=== PATIENT | female | born 1955 | race Caucasian/White ===

== ENCOUNTER 2022-01-25 19:58 | Inpatient (IN) | payer MEDICAID, SELFPAY ==
[2022-01-25] VITALS (8 sets, daily range): BP systolic 123–147; BP diastolic 62–79; PULSE 53–60; RESP 16–18; TEMP 35.8–36.6; O2SAT 95–97; BMI 40.3; BMI 38.8
--- NOTE | 2022-01-25 20:20 | EKG12_ITS ---
Test Reason : SYNCOPE Blood Pressure : / mmHG Vent. Rate : 056 BPM Atrial Rate : 056 BPM P-R Int : 232 ms QRS Dur : 166 ms QT Int : 496 ms P-R-T Axes : 040 -69 076 degrees QTc Int : 478 ms Sinus bradycardia with 1st degree A-V block Left axis deviation Left bundle branch block Abnormal ECG Confirmed by CORTNEY LIN, JEAN-CLAUDE ([id number]), newspaper copy editor TOM SMITH ([id number]) on 01/27/2022 1:03:23 PM Referred By: ELO Confirmed By:JEAN-CLAUDE BARR MD
--- NOTE | 2022-01-25 20:26 | EDS_ITS ---
HPI History of Present Illness Chief Complaint: Syncope Detail of Chief Complaint: Several times at home. Informant: patient Onset/Context/Timing Onset: Today Context: Sudden Onset Timing: Intermittent Current Severity: Gone Maximum Severity: Mild Narrative Narrative: 66-year-old female past medical history of diet-controlled diabetes. States she had a heart catheterization last year which was unremarkable. 2 weeks ago she passed out at home and fell was never evaluated. Today she was sitting at home in a chair and passed out. Awoke 1 to the bathroom passed out several times while using the toilet. Denies any headache, chest pain or shortness of breath. No recent illness other than a mild URI. She is currently on no medications. She denies any history of syncope. Prior similar symptoms: Yes Recent Illness/Hospitalization: No PFSH PFSH Home Medications NK 01/25/22 [History Last Taken Unknown] Allergy/AdvReac Type Severity Reaction Status Date / Time No Known Allergies Allergy Verified 01/25/22 20:07 Social History Smoking Status: Never smoker ROS ROS ED ROS Narrative Recent URI resolved. Review of Systems ROS Unobtainable: Denies due to encephalopathy Constitutional Constitutional ED: Denies chills or fever(s) Eyes Eyes: Denies blurry vision ENT ENT ED: Denies ear pain Cardiovascular Cardiovascular: Denies chest pain, palpitations or racing heartbeat Respiratory/Chest Respiratory/Chest: Denies cough or dyspnea Gastrointestinal Gastrointestinal: Denies abdominal pain, constipation, diarrhea, melena, nausea or vomiting Genitourinary Genitourinary ED: Denies dysuria or hematuria Musculoskeletal Musculoskeletal: Denies arthralgias Integumentary Denies abscess Neurologic Neurologic: Denies headache(s) Psychiatric Psychiatric: Denies anxiety Endocrine Endocrinology: Denies cold intolerance Hematologic/Lymphatic Hematologic/Lymphatic: Reports none Allergic/Immunologic Allergic/Immunologic ED: Denies mouth swelling or tongue swelling EXAM Physical Exam Narrative Exam Narrative: Well appearing 66-year-old female. Vital signs stable afebrile. Pulse ox 95% room air no signs hypoxia. H EENT exam unremarkable atraumatic. Pupils round reactive light. No facial droop. Normal speech. Neck nontender. Trachea midline. Lungs clear to auscultation bilaterally. Heart regular rhythm rate about 58. 3/6 systolic ejection murmur. Chest wall nontender. Abdomen soft nontender. Moving all 4 extremities. Nontender. No deformity. 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 Normal dorsi plantar flexion. Back nontender. Neurologically she is awake alert with no focal motor deficits. Answering questions and following commands. Const Vital Signs: 01/25/22 20:00 01/25/22 19:59 01/25/22 20:29 Temperature 97.7 F L 97.7 F L Temperature Source Temporal Temporal Pulse Rate 58 L 58 L Respiratory Rate 16 16 Respiratory Effort Normal Non-Labored Respiratory Pattern Normal Blood Pressure 137/62 H 137/62 H Blood Pressure Mean 87 87 Pulse Ox 95 95 Oxygen Delivery Method Room Air Room Air Oxygen Flow Rate (L/min) 01/25/22 21:04 Temperature Temperature Source Pulse Rate 53 L Respiratory Rate 16 Respiratory Effort Respiratory Pattern Blood Pressure 125/65 H Blood Pressure Mean 85 Pulse Ox 96 Oxygen Delivery Method Nasal Cannula Oxygen Flow Rate (L/min) 2 Positive well nourished, well developed and obese; Negative for cachectic, contractures or unkempt General Appearance ED: well developed and NAD; Negative for unkempt, cachectic, contractures, cyanotic or diaphoretic Nutritional Appearance: obese; Negative for cachectic HEENT Reports moist mucous membranes; Denies dry mucous membranes Negative for trauma or tenderness Mouth ED: No dry mucous membranes Mouth: No dry mucous membranes Eyes PERRL and EOMs intact bilaterally General Eye ED: Negative for pale conjunctiva or scleral icterus Neck no lymphadenopathy, supple and no JVD General: Negative for tenderness Lymph Lymphatic: Negative for other Chest Wall inspection of chest normal and palpation of chest normal Chest: Negative for other Resp normal respiratory effort and clear to auscultation bilaterally Effort and Inspection: Negative for retractions Auscultation: Negative for rales, rhonchi or wheezes Cardio regular rhythm, S1 normal heart sound and S2 normal heart sound; Negative for regular rate or no murmurs Rate: bradycardia and other Other Details: Cardia rate in the 50s. 3/6 systolic ejection murmur. GI normal to inspection, nondistended, normoactive bowel sounds, non-tender, non- distended and no masses Inspection: Negative for abdominal distention Auscultation: normoactive bowel sounds Palpation: soft; Negative for tender or guarding Back/Spine no CVA tenderness General Back: Negative for CVA tenderness Cervical Spine: Negative for cervical spine tenderness Thoracic Spine / Upper Back: Negative for thoracic spinal tenderness Lumbar Spine / Lower Back: Negative for lumbar spinal tenderness Extremity normal to inspection General Extremety ED: Negative for edema or tenderness General Extremity: Negative for edema Neuro oriented x3 and CN's II-XII intact bilaterally Sensorium / Orientation: alert; Negative for orientation impaired, lethargic or stuporous Motor Exam: strength 5/5 throughout; Negative for general weakness Psych mental status grossly normal Appearance: Negative for unkempt Attitude: No agitated Mood & Affect: Negative for depressed, anxious or tearful Skin no rashes or lesions noted and no wounds Lesions: No lesion noted Rashes: No rashes noted Trauma: Negative for abrasion Wounds: Negative for wounds noted MDM MDM MDM Narrative Medical decision making narrative: 66-year-old female with multiple syncopal episodes at home. She called the squad when they got there her heart rate was in the 30s. Concern is for cardiac syncope secondary to bradycardia. She undergo cardiac work-up. She will need to be admitted for further evaluation. Repeat exam patient is doing well at 9:25 PM. We discussed her test results. I spoke to the hospitalist and she will be admitted to the PCU. Lab Data Attestation: I reviewed the patient's lab results. Lab results narrative: CBC shows a white count 12.6. H&H 14 and 44. Platelets 329. Electrolytes unremarkable gap of 4 normal being creatinine. Glucose 173. Troponin normal at 9. Chest x-ray unremarkable. Labs: Laboratory Results - last 24 hr 01/25/22 01/25/22 20:30 20:30 WBC 12.6 H RBC 4.75 Hgb 14.0 Hct 44.9 MCV 94.5 MCH 29.5 MCHC 31.2 L RDW Std Deviation 44.9 H RDW Coeff of Claudio 13.0 Plt Count 329 MPV 8.5 Immature Gran % (Auto) 1.000 H Neut % (Auto) 84.0 H Lymph % (Auto) 9.2 L [place] % (Auto) 4.5 Eos % (Auto) 0.8 Baso % (Auto) 0.5 Absolute Neuts (auto) 10.6 H Absolute Lymphs (auto) 1.16 Nucleated RBC % 0 Sodium 140 Potassium 4.7 Chloride 103 Carbon Dioxide 33.0 H Anion Gap 4 L BUN 12 Creatinine 0.87 Estim Creat Clear Calc 56.41 Est GFR (MDRD) Af Amer 84 Est GFR (MDRD) Non-Af 70 BUN/Creatinine Ratio 13.8 Glucose 173 H Calcium 9.3 Troponin I High Sens 9 Radiography Chest X-Ray - ED: 1 View, Read by ED Physician, Heart, Lungs, Mediastinum, Bony Structures, No Acute Disease and Chronic Changes Diagnostic Testing: Chest x-ray, portable, single view interpreted by myself shows no acute abnormality. Normal cardiac silhouette. Normal mediastinum. Normal lung hannah. Rhythm Strip Rhythm Strip: Sinus Rhythm Rate: 56 Ectopy: None EKG Initial EKG: Attestation: I personally reviewed and interpreted this EKG as follows: Interpretation: No Acute Injury Pattern and LBBB Comments: Sinus bradycardia rate of 56. No acute signs of NC or ischemia. Left bundle branch block. No old EKG available for comparison. Discharge Plan Triage Chief Complaint: Syncope ED Provider: Yemi Lima Dx/Rx/DC Orders Clinical Impression: Syncope, Bradycardia, Complete left bundle branch block Prescriptions: No Action NK Primary Care Provider: Balwinder Rowe Referrals: Balwinder Rowe DO [Primary Care Provider] - Disposition Disposition: Acute Care Hospital [facility]
[2022-01-25 20:32] LABS: Absolute Lymphocyte Count 1.16 X10^3/uL (0.83-4.51); Absolute Neutrophil Count 10.6 X10^3/uL (2.0-7.7); Basophil# 0.06 X10^3/uL; Basophil% 0.5 % (0-1); Eosinophils% 0.8 % (0-5); Hematocrit 44.9 % (37-47); Lymphocyte # 1.16 X10^3/ul (0.83-4.51); Lymphocyte % 9.2 % (19-41); Mean Corp Hgb Conc 31.2 g/dL (32-36); Mean Corpuscular Hgb 29.5 pg (27.0-32.0); Mean Corpuscular Volume 94.5 fL (81-99); Mean Platelet Vol. 8.5 fl (6.2-12.0); Monocyte# 0.57 X10^3/uL; Monocyte% 4.5 % (0-10); NRBC Flagged by Analyzer 0 % (0-5); Neutrophil # 10.59 X10^3/uL (2.7-7.7); Platelet Count 329 K/mm3 (150-450); RBC Distribution Width SD 44.9 fl (35.1-43.9); Red Blood Count 4.75 M/mm3 (4.2-5.4); White Blood Count 12.6 K/mm3 (4.4-11.0)
--- NOTE | 2022-01-25 20:33 | RAD_ITS ---
INDICATION: chest pain EXAMINATION/TECHNIQUE: X-RAY - XR Chest 1 View COMPARISON: None. FINDINGS: LINES/DEVICES: None. Transcutaneous pacing pads project over the heart and left upper chest. LUNGS: Symmetric normal lung volumes. No airspace opacity or abnormal interstitial pattern. No nodule or mass. No pleural effusion or pneumothorax. MEDIASTINUM AND CARDIOVASCULAR STRUCTURES: Upper limit of normal size heart with mild pulmonary vascular congestion and mild widening of the vascular pedicle; upper mediastinum. BONES AND SOFT TISSUES: No fracture or focal osseous lesion. RAD/Chest 1 View (Portable) IMPRESSION: 1. Upper limit normal size heart and evidence of mild pulmonary vascular congestion. Electronically Signed: Janak Lieberman DO at 22:21 EDT ,
[2022-01-25 20:49] LABS: Anion Gap 4 (5-15); BUN 12 mg/dL (7-18); BUN/Creat Ratio 13.8 RATIO (10-20); Calcium,Total 9.3 mg/dL (8.5-10.1); Chloride 103 mmol/L (98-107); Creatinine, Serum 0.87 mg/dL (0.55-1.02); EST Glomerular Filtration Rate 70 mL/min (>60); Est Glom Filt Rate - Afr Amer 84 mL/min (>60); Estimated Creatinine Clearance 56.41 ml/min; Glucose 173 mg/dL (74-106); Potassium 4.7 mmol/L (3.5-5.1); Sodium Level 140 mmol/L (136-145); Troponin-I HS (w/2H Reflex) 9 pg/mL (3.0-54.0)
--- NOTE | 2022-01-25 21:32 | CDU_ITS ---
Reason For Study: Syncope Rt. Velocities/BP Lt. Velocities/BP Prox CCA 88.3/13.5 cm/sec. Prox CCA 91.9/17 cm/sec. Mid CCA 93.8/19 cm/sec. Mid CCA 93.7/20.6 cm/sec. Dist CCA 97.1/16.8 cm/sec. Dist CCA 110.1/24.3 cm/sec. Prox ICA 62.6/17 cm/sec. Prox ICA 104.7/18.8 cm/sec. Mid ICA 90/26.1 cm/sec. Mid ICA 112.6/33.6 cm/sec. Dist ICA 90/24.3 cm/sec. Dist ICA 110.4/31.4 cm/sec. Rt. ICA/CCA = 0.96. Lt. ICA/CCA = 1.20. Prox ECA 231.5/3.4 cm/sec. Prox ECA 152.1/13.3 cm/sec. Rt. Vert. 95.5/22.5 cm/sec. Lt. Vert. 45.8/13.9 cm/sec. Right Extracranial There is intimal thickening but no significant atherosclerotic plaque noted in the right common carotid artery. There is homogeneous, smooth atherosclerotic plaque noted in the right internal carotid artery. The right internal carotid artery is very tortuous. There is intimal thickening but no significant atherosclerotic plaque noted in the right external carotid artery. Antegrade flow is noted in the right vertebral artery. Left Extracranial There is homogeneous, smooth atherosclerotic plaque noted in the left common carotid artery. There is intimal thickening but no significant atherosclerotic plaque noted in the left internal carotid artery. There is intimal thickening but no significant atherosclerotic plaque noted in the left external carotid artery. Antegrade flow is noted in the left vertebral artery. Procedure Carotid Duplex [id number]. This is a Carotid Duplex examination using B-mode, color flow and specral Doppler. Exam performed portable in patient room. VL/Carotid Duplex Ultrasound Interpretation Summary Mild (<50%) stenosis right extracranial internal carotid. Normal left extracranial internal carotid. Patent and antegrade vertebrals bilaterally. Ordering Physician: Bere Andrew Referring Physician: Jae Performed By: Racquel Edwards RVT
--- NOTE | 2022-01-25 21:37 | HP.PCM.HOS_ITS ---
HPI - General General Date of Admission: 01/25/22 Date of Service: 01/25/22 Chief Complaint: Syncope HPI Narrative CHRISTIN RAMÍREZ, is a 66 F who presented to the emergency department at [facility] on 01/25/2022 after suffering 2 syncopal episodes today. She reported the first 1 occurred while she was sitting in a chair and she was getting up to go fix dinner and woke up half in the chair and half out of the chair. She reports she had no prodrome but did have urinary incontinence. She did not have any biting of her tongue and was able to get up and proceed with cooking her dinner. She then had several episodes while she was utilizing the toilet later this evening. She called the squad herself and when EMS arrived she was found to be bradycardic but awake. She had no loss of bowel or bladder function at that time. She indicates she had an episode previously this week with no loss of bowel or bladder function at that time either. She did not present for work-up after that episode. She does indicate she has had a recent upper respiratory infection which is resolving. She had a cardiac catheterization in August 2020 at a hospital in [facility] but she is unclear what the name of the hospital is. She will try to find out so we can obtain records. She does state however that she was told the cardiac catheterization was unremarkable. She states she was fatigued throughout the day today however prior to this morning she was feeling fairly normal and recovering from her upper respiratory infection without any difficulties. Vital signs on presentation showed a temperature of 97.7, heart rate has been anywhere between 53 and 58, blood pressure is 137/62, respiratory rate is 16 and pulse ox initially was 95% on room air however she did have some desaturations with pulse ox to 88 and was placed on 2 L nasal cannula. CBC shows a mild leukocytosis at 12.6 with a left shift. Chemistry panel is unremarkable other than an elevated serum bicarbonate which I suspect is related to her untreated sleep apnea and possibly obesity hypoventilation syndrome as well as some hyperglycemia with a blood glucose of 173. Her troponin was negative at 9. Chest x-ray is unremarkable. EKG shows first-degree heart block with a left bundle branch block and no ST-T wave changes at this time that are concerning for acute ischemia. Left bundle branch block makes interpretation more complicated however she has no chest pain and her troponin is normal. [facility] Medical History Aortic valve sclerosis Asthma Complete left bundle branch block GERD (gastroesophageal reflux disease) Hyperlipidemia Mitral valve regurgitation Morbid obesity Vitamin D deficiency Home Medications NK 01/25/22 [History Last Taken Unknown] Allergy/AdvReac Type Severity Reaction Status Date / Time No Known Allergies Allergy Verified 01/25/22 20:07 Family History (Updated 01/25/22 @ 22:[address] Bere Andrew DO) Mother Breast cancer Uterine cancer Surgical History (Updated 01/25/22 @ 22:[address] Bere Andrew DO) History of cataract surgery History of section History of dilation and curettage History of eye surgery S/P total abdominal hysterectomy Social History (Updated 01/25/22 @ 22:[address] Bere Andrew DO) household members: none Smoking Status: Never smoker alcohol intake: never substance use type: does not use ROS Constitutional Constitutional: Reports fatigue; Denies anorexia, change in weight, chills, fever(s), malaise, night sweats, weakness or other Eyes Eyes: Denies blurry vision, change in eye color, change in vision, discharge from eye(s), double vision, erythema, eye pain, loss of vision or other ENT HEENT: Reports nasal congestion; Denies abnormal hearing, dysphagia, ear pain, epistaxis, headache(s), hearing loss, nasal discharge, post nasal drip, sinus pressure, sore throat or other Cardiovascular Cardiovascular: Reports syncope; Denies chest pain, claudication, dyspnea on exertion, edema, lightheadedness, orthopnea, palpitations, paroxysmal nocturnal dyspnea, rapid heart rate or other Respiratory/Chest Respiratory/Chest: Reports cough; Denies dyspnea, excessive phlegm production, hemoptysis, productive cough, shortness of breath at rest, shortness of breath with exertion, wheezing or other Gastrointestinal Gastrointestinal: Denies abdominal pain, coffee ground emesis, constipation, diarrhea, dyspepsia, hematemesis, hematochezia, loose stools, melena, nausea, vomiting or other Genitourinary Genitourinary: Denies burning urination, difficulty urinating, dysuria, hematuria, nocturia, urinary frequency, urinary hesitancy, urinary incontinence, urinary urgency or other Musculoskeletal Musculoskeletal: Denies arthralgias, back pain, joint pain, joint stiffness, joint swelling, myalgias, neck pain or other Neurologic Neurologic: Reports syncope; Denies abnormal gait, abnormal speech, confusion, disequilibrium, dizziness, focal weakness, headache(s), numbness, paresthesias, seizure-like activity, seizures, tingling, tremor(s) or other Psychiatric Psychiatric: Denies anxiety, depression, homicidal ideation, suicidal ideation or other Endocrine Endocrinology: Denies change in body appearance, cold intolerance, excessive sweating, heat intolerance, polydipsia, polyuria or other Hematologic/Lymphatic Hematologic/Lymphatic: Denies anemia, easy bleeding, easy bruising, lymphadenopathy or other Allergic/Immunologic Allergic/Immunologic: Denies rhinitis, hives, eczemia, asthma or other Vital Signs Vital Signs Vital Signs: 01/25/22 20:00 01/25/22 19:59 01/25/22 20:29 Temperature 97.7 F L 97.7 F L Temperature Source Temporal Temporal Pulse Rate 58 L 58 L Respiratory Rate 16 16 Respiratory Effort Normal Non-Labored Respiratory Pattern Normal Blood Pressure 137/62 H 137/62 H Blood Pressure Mean 87 87 Pulse Ox 95 95 Oxygen Delivery Method Room Air Room Air Oxygen Flow Rate (L/min) 01/25/22 21:04 Temperature Temperature Source Pulse Rate 53 L Respiratory Rate 16 Respiratory Effort Respiratory Pattern Blood Pressure 125/65 H Blood Pressure Mean 85 Pulse Ox 96 Oxygen Delivery Method Nasal Cannula Oxygen Flow Rate (L/min) 2 Weight Weight: 106.6 kg Body Mass Index (BMI) 40.3 Physical Exam Const alert, oriented x3, no apparent distress, healthy appearing and well nourished Constitutional Narrative: Morbidly obese, upper middle-aged, white female sitting up in bed, appears comfortable and nontoxic, currently on nasal cannula General Appearance: cooperative HEENT normocephalic, head/scalp atraumatic, hearing grossly normal bilaterally and moist oral mucous membranes HEENT Narrative: Dentition is fair, Mallampati is 3, no thrush Eyes PERRL, EOMs intact bilaterally and conjunctivae normal Eyes Narrative: No scleral icterus Neck no lymphadenopathy, supple, no JVD and no carotid bruits Neck Narrative: Trachea midline, no thyroid enlargement Resp normal respiratory effort, no retractions, no use of accessory muscles and clear to auscultation bilaterally Auscultation: Negative for crackles, rales, rhonchi or wheezes Cardio regular rhythm, S1 normal heart sound, S2 normal heart sound, no rub, no gallops and no clicks; Negative for no murmurs Cardio Narrative: Sinus bradycardia, 3 out of 6 systolic murmur GI normal to inspection, nondistended, normoactive bowel sounds, soft to palpation, non-tender and non-distended Extremity no clubbing, cyanosis or edema Extremity Narrative: 2+ pedal pulses Skin no rashes or lesions noted, no wounds, skin turgor normal, no jaundice, no petechiae and no mottling Neuro oriented x3, CN's II-XII intact bilaterally, moves all extremities and no focal motor deficits Neuro Narrative: Mild generalized weakness proximal greater than distal however no focal deficits, reflexes are 2+ bilateral upper and lower extremities at the patellar tendon and brachial radialis, sensation is intact Speech: speech normal Psych affect normal Psych Narrative: Very pleasant and appropriately interactive Results Lab / Micro Data Result Diagrams: 01/25/22 20:30 01/25/22 20:30 Labs: Laboratory Results - last 24 hr 01/25/22 20:30: WBC 12.6 H, RBC 4.75, Hgb 14.0, Hct 44.9, MCV 94.5, MCH 29.5, MCHC 31.2 L, RDW Std Deviation 44.9 H, RDW Coeff of Claudio 13.0, Plt Count 329, MPV 8.5, Immature Gran % (Auto) 1.000 H, Neut % (Auto) 84.0 H, Lymph % (Auto) 9.2 L, [place] % (Auto) 4.5, Eos % (Auto) 0.8, Baso % (Auto) 0.5, Absolute Neuts (auto) 10.6 H, Absolute Lymphs (auto) 1.16, Nucleated RBC % 0 01/25/22 20:30: Sodium 140, Potassium 4.7, Chloride 103, Carbon Dioxide 33.0 H, Anion Gap 4 L, BUN 12, Creatinine 0.87, Estim Creat Clear Calc 56.41, Est GFR (MDRD) Af Amer 84, Est GFR (MDRD) Non-Af 70, BUN/Creatinine Ratio 13.8, Glucose 173 H, Calcium 9.3, Troponin I High Sens 9 Rhythm Strip Rhythm Strip: Sinus Rhythm Rate: 56 Ectopy: None Assessment & Plan Assessment/Plan (1) Syncope: (2) Bradycardia: (3) Leukocytosis: (4) Hypoxia: PLAN: Plan Syncope -Patient with multiple single apical episodes over the last several days -No significant prodrome -When squad arrived this evening heart rate was in the 30s and patient remains bradycardic in the 50s -Not on any rate controlling medication -Check TSH -Check echocardiogram -Cycle cardiac enzymes--> initial enzyme was normal at 9 -Check carotid Dopplers -Check orthostatics -Check D-dimer and if elevated will get CTA of the chest -Had cardiac catheterization in August 2020--> patient is unclear why they did this however she has a left bundle branch block on EKG and I question whether or not this is the reason -Patient reports that she was told there were no obstructive lesions--> currently unable to remember which hospital this was at but notes that it was in [facility] -We will request records and have asked patient to try to figure out which hospital this was performed Bradycardia -Heart rate in the 30s upon squad arrival after syncopal episode -In the 50s in the emergency department -TSH -Patient is not on any rate controlling medication -Monitor on telemetry -Cardiology consultation -Patient may need event monitor versus loop recorder at discharge depending on w ork-up Hypoxia -Etiology unclear -Currently requiring 2 L nasal cannula -Check D-dimer -Patient with recent respiratory infection and is recovering -Chest x-ray is overtly unremarkable but there does appear to be some cardiomegaly -Check viral respiratory panel -Rapid COVID is pending -If above work-up is negative would consider ABG on room air to check AA gradient and if a gradient is normal for age she may have obesity hypoventilation syndrome Leukocytosis -Mild -Suspect reactive as patient did have CBC yesterday and white count was 10 -Repeat in a.m. Aortic sclerosis and mitral valve regurgitation -Documented on previous admission from earlier in 2021 at [facility] in [place] -Echocardiogram is pending -Patient does have cardiac murmur on physical exam DM-2 -Patient had recent hemoglobin A1c on 01/24/2022 that was 7.3 -Patient is on diet control -Continue carb controlled diet -Sliding scale and Accu-Cheks ordered monitor for ongoing need History of GERD -Patient is not on any medication at baseline History of hyperlipidemia -Patient is not on any baseline medication History of vitamin D deficiency -Patient is not on any vitamin D supplementation at this time JASMIN -Patient noncompliant with CPAP -Would utilize oxygen nocturnally even if does not need [id number] Morbid obesity -BMI 40.3 -Complicates treatment, prognosis, outcomes -Recommend weight loss DVT prophylaxis -Lovenox -SCDs CODE STATUS -Full code Charges/Coding Visit Charges Inpatient E&M: 80735 Init Hosp L3
[2022-01-25 22:29] LABS: D-Dimer Quantitative (DVT/PE) 0.52 FEU/ug/m (0.27-0.49)
[2022-01-25 22:30] LABS: Reflex Troponin-HS? (from REC) Y
[2022-01-25 23:03] LABS: Troponin-I HS 10 pg/mL (3.0-54.0)
[2022-01-25 23:10] LABS: Bedside Glucose 164 mg/dL (74-106)
[2022-01-26] VITALS (12 sets, daily range): BP systolic 120–156; BP diastolic 56–76; PULSE 55–82; RESP 14–20; TEMP 36.5–36.8; O2SAT 88–100
--- NOTE | 2022-01-26 01:25 | PCM.HOSP.N ---
Hospitalist Note D-dimer was 0.52 which is just slightly elevated but when age corrected it is unremarkable.
[2022-01-26 04:30] LABS: Absolute Lymphocyte Count 2.82 X10^3/uL (0.83-4.51); Absolute Neutrophil Count 9.4 X10^3/uL (2.0-7.7); Basophil# 0.05 X10^3/uL; Basophil% 0.4 % (0-1); Eosinophil# 0.21 X10^3/uL; Eosinophils% 1.6 % (0-5); Hematocrit 43.3 % (37-47); Hemoglobin 13.4 g/dL (12.0-15.0); Lymphocyte # 2.82 X10^3/ul (0.83-4.51); Lymphocyte % 20.8 % (19-41); Mean Corp Hgb Conc 30.9 g/dL (32-36); Mean Corpuscular Hgb 29.1 pg (27.0-32.0); Mean Corpuscular Volume 93.9 fL (81-99); Mean Platelet Vol. 8.6 fl (6.2-12.0); Monocyte% 7.4 % (0-10); NRBC Flagged by Analyzer 0 % (0-5); Neutrophil # 9.38 X10^3/uL (2.7-7.7); Neutrophil % 69.3 % (47-70); Platelet Count 315 K/mm3 (150-450); RBC Distribution Width CV 13.1 % (11.6-14.6); RBC Distribution Width SD 44.9 fl (35.1-43.9); Red Blood Count 4.61 M/mm3 (4.2-5.4); White Blood Count 13.5 K/mm3 (4.4-11.0)
[2022-01-26 04:54] LABS: Troponin-I HS 9 pg/mL (3.0-54.0)
[2022-01-26 05:13] LABS: ALB/GLOB Ratio 0.8 RATIO (0.9-2.4); AST(SGOT) 20 U/L (15-37); Alanine Aminotransfer ALT/SGPT 29 U/L (13-56); Alkaline Phosphatase 115 U/L (45-117); Anion Gap 3 (5-15); BUN 13 mg/dL (7-18); BUN/Creat Ratio 14.4 RATIO (10-20); Calcium,Total 8.6 mg/dL (8.5-10.1); Chloride 102 mmol/L (98-107); EST Glomerular Filtration Rate 67 mL/min (>60); Est Glom Filt Rate - Afr Amer 81 mL/min (>60); Estimated Creatinine Clearance 54.53 ml/min; Globulin 3.8 g/dL (2.2-4.2); Glucose 146 mg/dL (74-106); Magnesium 2.3 mg/dL (1.6-2.6); Phosphorus 3.9 mg/dL (2.5-4.9); Potassium 4.9 mmol/L (3.5-5.1); Protein, Total 6.8 g/dL (6.4-8.2); Sodium Level 140 mmol/L (136-145); Thyroid Stim Hormone (TSH) 0.63 uIU/mL (0.358-3.74)
--- NOTE | 2022-01-26 05:55 | ECHOCS_ITS ---
Version 2 Reason For Study: Syncope Procedure This was a 2D Doppler, Color Flow transthoracic echocardiogram. The study was technically difficult. Contrast injection was performed. Exam performed portable in patient room. Left Ventricle Normal LV size. Left ventricular systolic function is normal. The estimated ejection fraction is 65 %. Stage 1 diastolic dysfunction. No regional wall motion abnormalities noted. Right Ventricle Normal RV size. Normal systolic function. Atria The left atrium is mildly enlarged. Normal right atrium. Mitral Valve Normal mitral valve. Tricuspid Valve Normal tricuspid valve. Aortic Valve Trisinus/trileaflet aortic valve. Pulmonic Valve Normal pulmonic valve. Great Vessels Normal aortic root. The pulmonary artery is normal size. Normal inferior vena cava. Pericardium/Pleural No pericardial effusion. Medication Diluted definity 2ml given slow IV push to enhance endocardial definition. MMode/2D Measurements & Calculations LVIDd: 5.8 cm IVSd: 1.0 cm Ao root diam: 3.6 cm LVIDs: 3.7 cm LVPWd: 1.1 cm LA dimension: 4.9 cm FS: 36.6 % LAV(MOD-bp): 63.0 ml LA A4 area: 21.9 cm2 RA A4 area: 15.4 cm2 LAV(MOD-bp) Indexed: 30.6 ml/m2 LAV(MOD-sp2): 62.7 ml LAV(MOD-sp4): 57.4 ml Time Measurements MV dec time: 0.31 sec Doppler Measurements & Calculations MV E max refugio: 90.2 cm/sec Lat Peak E' Refugio: 8.2 cm/sec Med Peak E' Refugio: 6.4 cm/sec MV A max refugio: 117.7 cm/sec E/E' lat: 11.1 E/E' med: 14.1 MV E/A: 0.77 MV V2 max: 158.1 cm/sec MV P1/2t max refugio: 142.3 cm/sec Ao V2 max: 202.8 cm/sec MV max P.0 mmHg MV P1/2t: 120.5 msec Ao max P.4 mmHg MV V2 mean: 89.9 cm/sec MV dec slope: 345.9 cm/sec2 MV mean P.8 mmHg MV V2 VTI: 49.7 cm MVA(P1/2t): 1.8 cm2 PA V2 max: 147.9 cm/sec ECHO/Echo Complete W/ Contrast Interpretation Summary Normal LV size. Left ventricular systolic function is normal. The estimated ejection fraction is 65 %. The left atrium is mildly enlarged. Stage 1 diastolic dysfunction. Contrast injection was performed. Ordering Physician: Bere Andrew Referring Physician: Balwinder Rowe Performed By: Devan Funes RCS
[2022-01-26] MEDS: Albuterol 2.5 MG/3 ML VIAL.NEB. INHALATION ×2 (07:14→20:45)
[2022-01-26 07:52] LABS: Hemoglobin A1c 7.1 % (3.8-5.6)
[2022-01-26 08:11] LABS: Bedside Glucose 137 mg/dL (74-106)
[2022-01-26 09:31] LABS: Bedside Glucose 138 mg/dL (74-106)
[2022-01-26] MEDS: Senna/Docusate Sodium 1 Tablet 2 TABLET PO (09:55)
--- NOTE | 2022-01-26 11:07 | TELEMED_ITS ---
[facility] Tele[facility] has confirmed receipt of a request for visit. This document confirms receipt of the order initiating the consult. To find the results of the consultation, please view the patient's reports for the scanned Telemed Consult.
[2022-01-26] MEDS: Insulin Lispro 100 UNIT/ML INSULN.PEN SC ×2 (11:42→16:17)
--- NOTE | 2022-01-26 11:49 | PN.HOSP_ITS ---
Subjective Subjective Patient seen and examined. She had no complaints this morning. She was admitted with syncope. She denies any headache, dizziness or blurred vision and review of systems otherwise negative. Objective Data Objective Data Vital Signs: Vital Signs Temp Pulse Resp BP Pulse Ox O2 Del Method O2 Flow Rate 97.9 F 61 14 122/56 H 96 Nasal Cannula 2 01/26/22 09:55 01/26/22 09:55 01/26/22 09:55 01/26/22 09:55 01/26/22 09:55 01/26/22 10:59 01/26/22 10:59 Oxygen Flow Rate (L/min) 2 Oxygen Delivery Method Nasal Cannula Weight: 226 lb 3.108 oz Body Mass Index (BMI) 38.8 Intake & Output: Intake and Output for Last 24 Hours 01/24/22 01/25/22 01/26/22 23:59 23:59 22:59 Intake Total 700 / 700 Balance 700 / 700 Lab / Micro Data Result Diagrams: 01/26/22 04:10 01/26/22 04:10 Labs: Laboratory Results - last 24 hr 01/25/22 20:30: WBC 12.6 H, RBC 4.75, Hgb 14.0, Hct 44.9, MCV 94.5, MCH 29.5, MCHC 31.2 L, RDW Std Deviation 44.9 H, RDW Coeff of Claudio 13.0, Plt Count 329, MPV 8.5, Immature Gran % (Auto) 1.000 H, Neut % (Auto) 84.0 H, Lymph % (Auto) 9.2 L, Shannon % (Auto) 4.5, Eos % (Auto) 0.8, Baso % (Auto) 0.5, Absolute Neuts (auto) 10.6 H, Absolute Lymphs (auto) 1.16, Nucleated RBC % 0 01/25/22 20:30: Sodium 140, Potassium 4.7, Chloride 103, Carbon Dioxide 33.0 H, Anion Gap 4 L, BUN 12, Creatinine 0.87, Estim Creat Clear Calc 56.41, Est GFR (MDRD) Af Amer 84, Est GFR (MDRD) Non-Af 70, BUN/Creatinine Ratio 13.8, Glucose 173 H, Calcium 9.3, Troponin I High Sens 9 01/25/22 20:30: D-Dimer Quant (PE/DVT) 0.52 H* 01/25/22 22:36: Troponin I High Sens 10 01/25/22 22:38: POC Glucose 164 H 01/26/22 04:10: Hemoglobin A1c 7.1 H 01/26/22 04:10: WBC 13.5 H, RBC 4.61, Hgb 13.4, Hct 43.3, MCV 93.9, MCH 29.1, MCHC 30.9 L, RDW Std Deviation 44.9 H, RDW Coeff of Claudio 13.1, Plt Count 315, MPV 8.6, Immature Gran % (Auto) 0.500, Neut % (Auto) 69.3, Lymph % (Auto) 20.8, Shannon % (Auto) 7.4, Eos % (Auto) 1.6, Baso % (Auto) 0.4, Absolute Neuts (auto) 9.4 H, Absolute Lymphs (auto) 2.82, Nucleated RBC % 0 01/26/22 04:10: Sodium 140, Potassium 4.9, Chloride 102, Carbon Dioxide 35.0 H, Anion Gap 3 L, BUN 13, Creatinine 0.90, Estim Creat Clear Calc 54.53, Est GFR (MDRD) Af Amer 81, Est GFR (MDRD) Non-Af 67, BUN/Creatinine Ratio 14.4, Glucose 146 H, Calcium 8.6, Phosphorus 3.9, Magnesium 2.3, Total Bilirubin 0.30, AST 20, ALT 29, Alkaline Phosphatase 115, Total Protein 6.8, Albumin 3.0 L, Globulin 3.8, Albumin/Globulin Ratio 0.8 L, TSH 0.63 01/26/22 04:10: Troponin I High Sens 9 01/26/22 06:21: POC Glucose 137 H 01/26/22 08:26: POC Glucose 138 H Micro: Microbiology 01/25/22 21:40 Nasal Secretion SARS-CoV-2 Antigen (Rapid) - Final Radiography Diagnostic Testing: Radiology Impression Chest X-Ray 01/25/22 20:33 IMPRESSION: 1. Upper limit normal size heart and evidence of mild pulmonary vascular congestion. Electronically Signed: Janak Lieberman DO at 22:21 EDT , Rhythm Strip Rhythm Strip: Sinus Rhythm Rate: 56 Ectopy: None Physical Exam Const alert, oriented x3 and average body habitus HEENT head/scalp atraumatic and moist oral mucous membranes Head and Scalp: normocephalic Mouth: oral and palatal mucosa normal Eyes PERRL, EOMs intact bilaterally and conjunctivae normal Resp normal respiratory effort, no retractions, no use of accessory muscles and clear to auscultation bilaterally Cardio regular rate, regular rhythm, S1 normal heart sound, S2 normal heart sound and no murmurs GI normal to inspection, nondistended, normoactive bowel sounds, soft to palpation, non-tender and non-distended Extremity normal to inspection, full ROM and no clubbing, cyanosis or edema Neuro oriented x3, CN's II-XII intact bilaterally, moves all extremities and no focal motor deficits Sensorium / Orientation: awake and alert Motor Exam: strength 5/5 throughout Psych affect normal Assessment & Plan Assessment/Plan (1) Syncope: (2) Bradycardia: PLAN: Plan #Syncope * Says she had 2 episodes of syncope. The first episode was when she had been s itting in her chair for a long time and was getting up to going to peroneal. She felt weak and lightheaded and sat back in her chair and subsequently came around. She does not know how long she was out for. The second episode was when she went to the bathroom and was sitting on the toilet and again passed out. She does not know how long she was out for. * She says she had associated urinary incontinence. She was also bradycardic with heart rate in the 50s when the EMS came. D-dimer corrected for age was within normal limits. * Has symptoms are concerning for possible seizure especially in light of the urinary incontinence. Patient has also as she is concerned she may have had seizures. * She also does say that she falls asleep very easily and has fallen asleep behind the wheel before. It is unclear whether these were seizure episodes or respiratory narcolepsy. * Orthostatics negative. TSH within normal limits. * Troponins were negative. * Will get EEG and consult neurology. * 2D echo also ordered. * PT OT consult. Fall precautions. Cardiology also consulted on account of bradycardia. * #Bradycardia * Heart rate was reportedly in the 30s when the squad arrived. Her heart rate had been in the 50s in the ED and has been pretty much normal since she came in. * Not on any rate limiting medications. Cardiology consulted. Await recs. * 2D echo also ordered. * #History of aortic sclerosis and mitral valve regurgitation * 2D echo ordered and pending * #Type 2 diabetes mellitus: * Last A1c on 01/26/2022 was 7.1 * Currently not on any medication. On diabetic diet. Insulin sliding scale. Accu-Cheks ACH S. * * #JASMIN: * Noncompliant with CPAP. I do suspect that her reported episodes of narcolepsy are likely due to her noncompliance with CPAP * Will need follow-up with pulmonology on outpatient basis * * #Morbid obesity * BMI is 38.8. counseled on DASH diet and physical exercise. * DVT prophylaxis: lovenox Charges/Coding Visit Charges Inpatient E&M: 08982 Subs Hosp L2
[2022-01-26 12:16] LABS: Bedside Glucose 157 mg/dL (74-106)
[2022-01-26 17:20] LABS: Bedside Glucose 193 mg/dL (74-106)
--- NOTE | 2022-01-26 22:17 | CT_ITS ---
STUDY: CT BRAIN WITHOUT CONTRAST REASON FOR EXAM: Female, 66 years old. syncope RADIATION DOSAGE (If Supplied By Facility): CTDIvol = ( 44.99 ) mGy, DLP = ( 779.24 ) mGycm TECHNIQUE: Transaxial CT imaging of the brain was performed without administration of intravenous contrast material. Individualized dose optimization techniques were used for this CT. COMPARISON: No relevant priors. FINDINGS: Normal soft tissue structures. Normal calvarium. Normal size ventricles and extra-axial spaces for the patient''s age. Normal white matter tracts of the cerebral hemispheres. Normal basal ganglia and thalami. Normal brainstem. Normal cerebellum. There is no intracranial hemorrhage. There are no findings of an acute ischemic infarction. Normal visualized paranasal sinuses. CT/Brain/Head without Contrast IMPRESSION: Normal unenhanced CT scan of the brain. Electronically Signed: Atif Castro MD at 22:56 EST ,
[2022-01-26 23:51] LABS: Bedside Glucose 198 mg/dL (74-106)
[2022-01-27] VITALS (8 sets, daily range): BP systolic 118–140; BP diastolic 58–75; PULSE 61–76; RESP 12–18; TEMP 36.6; O2SAT 93–95
[2022-01-27 07:00] LABS: Absolute Lymphocyte Count 2.74 X10^3/uL (0.83-4.51); Basophil# 0.05 X10^3/uL; Basophil% 0.5 % (0-1); Eosinophil# 0.42 X10^3/uL; Eosinophils% 3.8 % (0-5); Hematocrit 42.8 % (37-47); Hemoglobin 13.2 g/dL (12.0-15.0); Lymphocyte # 2.74 X10^3/ul (0.83-4.51); Lymphocyte % 24.8 % (19-41); Mean Corp Hgb Conc 30.8 g/dL (32-36); Mean Corpuscular Hgb 29.5 pg (27.0-32.0); Mean Corpuscular Volume 95.5 fL (81-99); Mean Platelet Vol. 8.8 fl (6.2-12.0); Monocyte# 0.77 X10^3/uL; NRBC Flagged by Analyzer 0 % (0-5); Neutrophil % 63.3 % (47-70); Platelet Count 315 K/mm3 (150-450); RBC Distribution Width SD 45.8 fl (35.1-43.9); Red Blood Count 4.48 M/mm3 (4.2-5.4); White Blood Count 11.1 K/mm3 (4.4-11.0)
[2022-01-27] MEDS: Albuterol 2.5 MG/3 ML VIAL.NEB. INHALATION ×2 (07:02→13:31)
[2022-01-27 07:10] LABS: Bedside Glucose 144 mg/dL (74-106)
--- NOTE | 2022-01-27 07:27 | NURSING ---
Documentation reviewed with Samara HAWLEY preceptee
[2022-01-27 07:34] LABS: Anion Gap 3 (5-15); BUN 13 mg/dL (7-18); BUN/Creat Ratio 16.5 RATIO (10-20); Calcium,Total 8.5 mg/dL (8.5-10.1); Chloride 103 mmol/L (98-107); Creatinine, Serum 0.79 mg/dL (0.55-1.02); EST Glomerular Filtration Rate 78 mL/min (>60); Est Glom Filt Rate - Afr Amer 94 mL/min (>60); Estimated Creatinine Clearance 62.12 ml/min; Glucose 140 mg/dL (74-106); Potassium 4.4 mmol/L (3.5-5.1); Sodium Level 140 mmol/L (136-145)
--- NOTE | 2022-01-27 07:42 | PCM.CONS.C ---
Assessment & Plan Assessment/Plan (1) Syncope: PLAN: She does presents with recurrent syncope and evidence of underlying conduction system disorder with a left bundle branch block. Her initial episode appeared to be 1 with loss of urinary incontinence suggestive of his seizure but she could have been significantly asystolic for a while as well. I would like us to obtain an echocardiogram to assess her ventricular function. She has been monitored thus far in the hospital for 48 hours with no significant rhythm abnormalities. If her echocardiogram is unremarkable I may suggest that we place an implantable loop recorder. This can be scheduled in the next few days as an outpatient. (2) Complete left bundle branch block: PLAN: She does have a left bundle branch block and a first-degree AV block. She denies any exposure to ticks recently. We will continue to evaluate her. Thank you for allowing me to participate in the care of your patient. Please don't hesitate to call if any issues arise. HPI Consult Data Date of Consult: 01/27/22 HPI Narrative HPI Narrative: CHRISTIN RAMÍREZ, is a 66 F who presented to the emergency department at [facility] on 01/25/2022 after suffering 2 syncopal episodes today.? She reported the first 1 occurred while she was sitting in a chair and she was getting up to go fix dinner and woke up half in the chair and half out of the chair.? She reports she had no prodrome but did have urinary incontinence.? She did not have any biting of her tongue and was able to get up and proceed with cooking her dinner.? She then had several episodes while she was utilizing the toilet later this evening.? She called the squad herself and when EMS arrived she was found to be bradycardic but awake.? She had no loss of bowel or bladder function at that time.? She indicates she had an episode previously this week with no loss of bowel or bladder function at that time either.? She did not present for work-up after that episode.? She does indicate she has had a recent upper respiratory infection which is resolving.? She had a cardiac catheterization in August 2020 at a hospital in [facility] but she is unclear what the name of the hospital is.? ? She does state however that she was told the cardiac catheterization was unremarkable.? She states she was fatigued throughout the day today however prior to this morning she was feeling fairly normal and recovering from her upper respiratory infection without any difficulties. Vital signs on presentation showed a temperature of 97.7, heart rate has been anywhere between 53 and 58, blood pressure is 137/62, respiratory rate is 16 and pulse ox initially was 95% on room air however she did have some desaturations with pulse ox to 88 and was placed on 2 L nasal cannula.? Her troponin was negative at 9.? Chest x-ray is unremarkable.? EKG shows first-degree heart block with a left bundle branch block and no ST-T wave changes at this time that are concerning for acute ischemia.? On the telemetry floor she has not had any bradycardia arrhythmic spells. [facility] Medical History (Updated 01/27/22 @ 07:[address] Michael Magdaleno MD) Aortic valve sclerosis Asthma Complete left bundle branch block GERD (gastroesophageal reflux disease) Hyperlipidemia Mitral valve regurgitation Morbid obesity Vitamin D deficiency Home Medications NK 01/25/22 [History Last Taken Unknown] Allergy/AdvReac Type Severity Reaction Status Date / Time No Known Allergies Allergy Verified 01/25/22 20:07 Family History Mother Breast cancer Uterine cancer Surgical History History of cataract surgery History of section History of dilation and curettage History of eye surgery S/P total abdominal hysterectomy Social History household members: none housing: apartment current occupational status: unemployed Smoking Status: Never smoker alcohol intake: never substance use type: does not use ROS Constitutional Constitutional: Denies fever(s) or weight loss Eyes Eyes: Reports systems reviewed and no addt'l complaints, except as documented ENT HEENT: Reports systems reviewed and no addt'l complaints, except as documented Cardiovascular Cardiovascular: Denies chest pain at rest, chest pain with activity, dyspnea at rest, dyspnea on exertion, edema, palpitations or paroxysmal nocturnal dyspnea Respiratory/Chest Respiratory/Chest: Denies dyspnea on exertion, productive cough, shortness of breath at rest or shortness of breath with exertion Gastrointestinal Gastrointestinal: Denies change in bowel habits, nausea, vomiting or weight changes Genitourinary Genitourinary: Denies difficulty urinating Musculoskeletal Musculoskeletal: Denies joint stiffness or muscle weakness Integumentary Integumentary: Denies lesions Neurologic Neurologic: Reports dizziness and syncope Psychiatric Psychiatric: Denies anxiety Endocrine Endocrinology: Denies excessive sweating or fatigue Hematologic/Lymphatic Hematologic/Lymphatic: Denies anemia Allergic/Immunologic Allergic/Immunologic: Denies seasonal rhinorrhea Physical Exam Const alert, oriented x3 and no apparent distress General Appearance: cooperative HEENT hearing grossly normal bilaterally Head and Scalp: atraumatic Eyes EOMs intact bilaterally Neck General: normal visual inspection Chest inspection of chest normal and palpation of chest normal Resp normal respiratory effort Auscultation: clear to auscultation bilaterally Cardio regular rate, regular rhythm, S1 normal heart sound and S2 normal heart sound Jugular Venous Distention: JVD GI normal to inspection, nondistended, normoactive bowel sounds Extremity normal capillary refill and no pedal edema Peripheral Pulses: Yes pulses 2+ throughout and femoral pulses present Skin no rashes or lesions noted Neuro oriented x3 and CN's II-XII intact bilaterally Psych Appearance: grossly normal and appropriate Risk Stratification Risk Stratification Applicable: No Objective Data Vital Signs: Vital Signs Temp Pulse Resp BP Pulse Ox O2 Del Method O2 Flow Rate 97.9 F 64 18 118/63 94 Room Air 2 01/27/22 05:08 01/27/22 05:08 01/27/22 05:08 01/27/22 05:08 01/27/22 05:08 01/27/22 05:11 01/27/22 05:08 Oxygen Flow Rate (L/min) 2 Oxygen Delivery Method Room Air Weight: 226 lb 3.108 oz Body Mass Index (BMI) 38.8 Intake & Output: Intake and Output for Last 24 Hours 01/26/22 01/26/22 01/27/22 00:59 23:59 23:59 Intake Total 250 / 250 Balance 250 / 250 Lab / Micro Data Result Diagrams: 01/27/22 05:33 01/27/22 05:33 Labs: Laboratory Results - last 24 hr 01/26/22 04:10: Hemoglobin A1c 7.1 H 01/26/22 06:21: POC Glucose 137 H 01/26/22 08:26: POC Glucose 138 H 01/26/22 11:40: POC Glucose 157 H 01/26/22 16:16: POC Glucose 193 H 01/26/22 23:23: POC Glucose 198 H 01/27/22 05:33: WBC 11.1 H, RBC 4.48, Hgb 13.2, Hct 42.8, MCV 95.5, MCH 29.5, MCHC 30.8 L, RDW Std Deviation 45.8 H, RDW Coeff of Claudio 13.0, Plt Count 315, MPV 8.8, Immature Gran % (Auto) 0.600, Neut % (Auto) 63.3, Lymph % (Auto) 24.8, [place] % (Auto) 7.0, Eos % (Auto) 3.8, Baso % (Auto) 0.5, Absolute Neuts (auto) 7.0, Absolute Lymphs (auto) 2.74, Nucleated RBC % 0 01/27/22 05:33: Sodium 140, Potassium 4.4, Chloride 103, Carbon Dioxide 34.0 H, Anion Gap 3 L, BUN 13, Creatinine 0.79, Estim Creat Clear Calc 62.12, Est GFR (MDRD) Af Amer 94, Est GFR (MDRD) Non-Af 78, BUN/Creatinine Ratio 16.5, Glucose 140 H, Calcium 8.5 01/27/22 06:46: POC Glucose 144 H Rhythm Strip Rhythm Strip: Sinus Rhythm Rate: 56 Ectopy: None Cardiology Labs/Tests 01/26/22 04:10: Hemoglobin A1c 7.1 H 01/27/22 05:33: WBC 11.1 H, RBC 4.48, Hgb 13.2, Hct 42.8, MCV 95.5, MCH 29.5, MCHC 30.8 L, Plt Count 315, MPV 8.8, Immature Gran % (Auto) 0.600, Neut % (Auto) 63.3, Lymph % (Auto) 24.8, [place] % (Auto) 7.0, Eos % (Auto) 3.8, Baso % (Auto) 0.5, Absolute Neuts (auto) 7.0, Nucleated RBC % 0 01/27/22 05:33: Sodium 140, Potassium 4.4, Chloride 103, Carbon Dioxide 34.0 H, Anion Gap 3 L, BUN 13, Creatinine 0.79, Est GFR (MDRD) Af Amer 94, Est GFR (MDRD) Non-Af 78, BUN/Creatinine Ratio 16.5, Glucose 140 H, Calcium 8.5 Rhythm: EKG: ECHO: Stress Test: Cardiac Cath: PCI: CT Surgery: Holter monitor: EPS: PPM: CXR: Chest CT Scan: Radiography Diagnostic Testing: Radiology Impression Brain CT 01/26/22 22:17 IMPRESSION: Normal unenhanced CT scan of the brain. Electronically Signed: Atif Castro MD at 22:56 EST ,
[2022-01-27] MEDS: Senna/Docusate Sodium 1 Tablet 2 TABLET PO (08:15)
--- NOTE | 2022-01-27 10:30 | CASEMGMT ---
RN ROSALIE Face to Face with patient for initial transition planning/care coordination assessment. RN CM introduced self and role at [facility]. Patient lying in bed, alert and oriented. Patient willing to participate in assessment and is able to answer all questions appropriately. Care providers, pharmacy, and demographics verified. Patient wishes to discharge home, denies need for home health at this time. Patient states she has no further needs or concerns at this time. CM to follow for discharge planning needs that may arise. PCP: Jae Specialists: none Preferred Pharmacy: [facility] retail at discharge. Insurance: [employer] Prescription Benefit: yes Living Will/HPOA: none LNOK: daughter Living Arrangements: Patient lives alone in a 2nd floor apartment with elevator. Patient states she is independent at home. Transportation: Provide a Ride DME/HHC: Patient states she has grab bars at home, denies further DME. No previous HHC or SNF. Disposition Plan: Patient to discharge home with family support and follow-up plans in place. Racquel BLACK, RN, CM
[2022-01-27] MEDS: Insulin Lispro 100 UNIT/ML INSULN.PEN SC ×2 (11:07→16:15)
[2022-01-27 11:25] LABS: Bedside Glucose 256 mg/dL (74-106)
--- NOTE | 2022-01-27 14:22 | DCINST_ITS ---
Discharge Instructions Diet Discharge Diet: Low fat / Low cholesterol Activity Discharge Activity: Return to Normal Activity Weight Bearing Status: Weight bearing as tolerated Dressing / Incision Call your doctor if you observe: Dizziness, Fainting spells, Chest pain and Increased palpitations (irregular heartbeat) Follow Up Care Test Results: Test results from this visit will be discussed in further detail at your follow- up appointment, if applicable. Discharge Plan Admission Admit Date/Time: 01/25/22 21:28 Primary Reason for Your Visit: syncope Attending Provider: Tash Gudino Primary Care Provider: Balwinder Rowe Consulting Providers: Tono Simpson ; Bere Andrew Instructions Patient Instructions: Diagnosing Syncope, Dizziness Fainting Causes Additional Instructions / Restrictions: cardiology will follow up for appointment for implantable loop recorder within a week Discharge Orders/Prescriptions Prescriptions: No Action NK Referrals / Follow Up: Michael Magdaleno MD [Med Staff - Active Staff] - Within 1 Week Balwinder Rowe DO [Primary Care Provider] - Within 2 Weeks Du Donaldson DO [Med Staff - Active Staff] - Within 2 Weeks (to establish care for sleep apnea) Disposition Disposition (needs filled in before D/C Order can be placed): Home, Self Care
--- NOTE | 2022-01-27 14:23 | DS.PCM_ITS ---
Providers Date of Admission: 01/25/22 Date of Discharge: 01/27/22 Primary Care Physician: Dr. Balwinder Rowe, DO Consultations 01/25/22 22:21 Consult: Cardiology Routine Consulting Provider: Tono Simpson Reason for Consult: syncope and bradycardia EMERGENT Consult: No MD Notified: Yes Date Notified: 01/25/22 Time Notified: 21:35 Method of Notification: Text Reason For Visit: SYNCOPE AND BRADYCARDIA Diagnosis Discharge Diagnosis (1) Syncope: Status: Acute Code(s): R55 - Syncope and collapse (2) Complete left bundle branch block: Status: Acute Code(s): I44.7 - Left bundle-branch block, unspecified Plan #Syncope * Says she had 2 episodes of syncope. The first episode was when she had been sitting in her chair for a long time and was getting up to going to peroneal. She felt weak and lightheaded and sat back in her chair and subsequently came around. She does not know how long she was out for. The second episode was when she went to the bathroom and was sitting on the toilet and again passed out. She does not know how long she was out for. * She says she had associated urinary incontinence. She was also bradycardic with heart rate in the 50s when the EMS came. D-dimer corrected for age was within normal limits. * Has symptoms are concerning for possible seizure especially in light of the urinary incontinence. Patient has also as she is concerned she may have had seizures. * She also does say that she falls asleep very easily and has fallen asleep behind the wheel before. It is unclear whether these were seizure episodes or respiratory narcolepsy. * Orthostatics negative. TSH within normal limits. * Troponins were negative. * Will get EEG and consult neurology. * 2D echo also ordered. * PT OT consult. Fall precautions. Cardiology also consulted on account of bradycardia. * #Bradycardia * Heart rate was reportedly in the 30s when the squad arrived. Her heart rate had been in the 50s in the ED and has been pretty much normal since she came in. * Not on any rate limiting medications. Cardiology consulted. Await recs. * 2D echo also ordered. * #History of aortic sclerosis and mitral valve regurgitation * 2D echo ordered and pending * #Type 2 diabetes mellitus: * Last A1c on 01/26/2022 was 7.1 * Currently not on any medication. On diabetic diet. Insulin sliding scale. Accu-Cheks ACH S. * * #JASMIN: * Noncompliant with CPAP. I do suspect that her reported episodes of narcolepsy are likely due to her noncompliance with CPAP * Will need follow-up with pulmonology on outpatient basis * * #Morbid obesity * BMI is 38.8. counseled on DASH diet and physical exercise. * DVT prophylaxis: lovenox Medications at Discharge Home Medications NK 01/25/22 Hospital Course Operations None Procedures 2-D Echocardiogram Summary of Care Provided Minutes Spent on Discharge: 45 Hospital Course: Patient is a 66-year-old female with a past medical history as outlined was admitted through the ED on 01/25/2022 with a complaint of syncopal episodes x2. The first episode occurred when she was sitting in a chair and states that she got up to go fixed and and subsequently passed out. When she came on she was in a chair. She does not know how long she was out for. She denied any prodromal symptoms but admitted to urinary incontinence afterwards. She had no bowel incontinence and no tongue biting. She was able to carry out activities of daily living subsequently. Later she went to use the bathroom and states she passed out while she was sitting on the toilet. When the EMS arrived she was found to be bradycardic with a heart rate in the 30s when she was brought into the ED. EKG showed mild bradycardia with heart rate in the 50s but she had normal labs otherwise. She was admitted to be managed for syncope probably cardiac related and to rule out a seizure. EEG was ordered which was also read as normal awake and drowsy EEG. Neurology was consulted and reviewed patient I did not think that his symptoms were due to any neurologic pathology. She has CT of the brain which showed no acute intracranial pathology. She remained stable and did not have any bradycardia during this admission. Carotid ult rasound showed mild less than 50% stenosis of the right extracranial internal carotid and normal left extracranial internal carotid as well as patent antegrade vertebrals bilaterally. Cardiology reviewed her recommended implantation of a loop recorder which was to be done on outpatient basis. Card iology will therefore follow-up with patient on outpatient basis for this to be scheduled. She remained stable and was discharged home on 01/27/2022 1 she is to follow up with her PCP within one week and also follow-up with cardiology within 1 week. Patient seen and examined prior to discharge. She had no complaints and had an uneventful night. Review of systems otherwise negative. Labs and vitals reviewed. Home medication reviewed and reconciled. Physical Exam Const alert, oriented x3, no apparent distress, average body habitus, healthy appearing and well nourished General Appearance: cooperative and comfortable Orientation / Consciousness: awake Exam Limitations: no limitations HEENT normocephalic, head/scalp atraumatic, hearing grossly normal bilaterally and moist oral mucous membranes Mouth: oral and palatal mucosa normal Eyes PERRL, EOMs intact bilaterally and conjunctivae normal Eyes Narrative: No scleral icterus Neck no lymphadenopathy, supple, no JVD and no carotid bruits Resp normal respiratory effort, no retractions, no use of accessory muscles and clear to auscultation bilaterally Auscultation: Negative for crackles, rales, rhonchi or wheezes Cardio regular rate, regular rhythm, S1 normal heart sound, S2 normal heart sound, no rub, no gallops and no clicks Cardio Narrative: 3 out of 6 systolic murmur GI normal to inspection, nondistended, normoactive bowel sounds, soft to palpation, non-tender and non-distended Extremity normal to inspection, full ROM and no clubbing, cyanosis or edema Skin no rashes or lesions noted, no wounds, skin turgor normal, no jaundice, no petechiae and no mottling Neuro oriented x3, CN's II-XII intact bilaterally, moves all extremities and no focal motor deficits Sensorium / Orientation: awake and alert Speech: speech normal Motor Exam: strength 5/5 throughout Psych affect normal Psych Narrative: Very pleasant and appropriately interactive Weight / BMI Weight Weight: 226 lb 3.108 oz Body Mass Index (BMI) 38.8 ABG / Lab / Microbiology Data Result Diagrams: 01/27/22 05:33 01/27/22 05:33 Laboratory: Laboratory Results - last 24 hr 01/26/22 16:16: POC Glucose 193 H 01/26/22 23:23: POC Glucose 198 H 01/27/22 05:33: WBC 11.1 H, RBC 4.48, Hgb 13.2, Hct 42.8, MCV 95.5, MCH 29.5, MCHC 30.8 L, RDW Std Deviation 45.8 H, RDW Coeff of Claudio 13.0, Plt Count 315, MPV 8.8, Immature Gran % (Auto) 0.600, Neut % (Auto) 63.3, Lymph % (Auto) 24.8, Powell % (Auto) 7.0, Eos % (Auto) 3.8, Baso % (Auto) 0.5, Absolute Neuts (auto) 7.0, Absolute Lymphs (auto) 2.74, Nucleated RBC % 0 01/27/22 05:33: Sodium 140, Potassium 4.4, Chloride 103, Carbon Dioxide 34.0 H, Anion Gap 3 L, BUN 13, Creatinine 0.79, Estim Creat Clear Calc 62.12, Est GFR (MDRD) Af Amer 94, Est GFR (MDRD) Non-Af 78, BUN/Creatinine Ratio 16.5, Glucose 140 H, Calcium 8.5 01/27/22 06:46: POC Glucose 144 H 01/27/22 11:06: POC Glucose 256 H Microbiology: Microbiology 01/25/22 21:40 Nasal Secretion SARS-CoV-2 Antigen (Rapid) - Final Radiography Diagnostic Testing: Radiology Impression Echocardiogram 01/26/22 05:55 Interpretation Summary Normal LV size. Left ventricular systolic function is normal. The estimated ejection fraction is 65 %. The left atrium is mildly enlarged. Stage 1 diastolic dysfunction. Contrast injection was performed. Ordering Physician: Bere Andrew Referring Physician: Balwinder Rowe Performed By: Devan Funes RCS Brain CT 01/26/22 22:17 IMPRESSION: Normal unenhanced CT scan of the brain. Electronically Signed: Atif Castro MD at 22:56 EST , D/C Instructions Discharge Diet: Low fat / Low cholesterol Weight Bearing Status: Weight bearing as tolerated Call your doctor if you observe: Dizziness, Fainting spells, Chest pain and Increased palpitations (irregular heartbeat) Meaningful Use Info Meaningful Use Diagnoses (Choose all that apply): None applicable Discharge Plan Admission Admit Date/Time: 01/25/22 21:28 Primary Reason for Your Visit: syncope Attending Provider: Tash Gudino Primary Care Provider: Balwinder Rowe Consulting Providers: Tono Simpson ; Bere Andrew Instructions Patient Instructions: Diagnosing Syncope, Dizziness Fainting Causes Additional Instructions / Restrictions: cardiology will follow up for appointment for implantable loop recorder within a week Discharge Orders/Prescriptions Prescriptions: No Action NK Referrals / Follow Up: Michael Magdaleno MD [Med Staff - Active Staff] - Within 1 Week Du Donaldson DO [Med Staff - Active Staff] - Within 2 Weeks (to establish care for sleep apnea) Balwinder Rowe DO [Primary Care Provider] - Within 2 Weeks Disposition Disposition (needs filled in before D/C Order can be placed): Home, Self Care Charges/Coding Visit Charges Inpatient E&M: [id number] Disch Hosp
--- NOTE | 2022-01-27 16:34 | CHAPLAIN ---
Type of Pastoral Visit _x__ Initial Visit ___ Follow-up Visit ___ On-call Visit ___ General Patient Visit ___ Spiritual Assessment ___ Family Conference ___ Bereavement ___ Rapid Response ___ Code Blue ___ Other (describe below) Pastoral Care Referral From _x__ Patient ___ Family ___ Nurse ___ Physician ___ Infant Lead Teacher ___ Appliance Service Representative ___ Other (describe below) Sacrament/Intervention _x__ Active listening ___ Anointing ___ Taoism ___ Bereavement ___ Communion _x__ Leny exploration ___ _x__ Life review _x__ Prayer ___ Reconciliation ___ Sacrament of Sick _x_ Supportive presence ___ Wedding ___ Other (describe below) Pastoral Comments patient explains her health situation, her family situation and lack of real support; pt has no transportation; pt does have 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
[2022-01-27 17:11] LABS: Bedside Glucose 200 mg/dL (74-106)
== END 2022-01-27 19:01 | disposition home or self-care (01) | DRG 201 ==
LOC: ED 21:29 → PCU 23:34
PROVIDERS: Admitting Provider Internal Medicine; Emergency Provider Emergency Medicine; PCP Student in an Organized Health Care Education/Training Program; Visit Provider Student in an Organized Health Care Education/Training Program
DX: I44.0 Atrioventricular block, first degree (principal); E66.2 Morbid (severe) obesity with alveolar hypoventilation; E11.65 Type 2 diabetes mellitus with hyperglycemia; Z68.41 Body mass index [BMI] 40.0-44.9, adult; E78.5 Hyperlipidemia, unspecified; G47.429 Narcolepsy in conditions classified elsewhere without cataplexy; R09.02 Hypoxemia; Z20.822 Contact with and (suspected) exposure to COVID-19; Z91.199 Patient's noncompliance with other medical treatment and regimen due to unspecified reason
CPT/HCPCS: 36415; 70450; 71045; 80048; 80053; 82962; 83036; 83735; 84100; 84443; 84484; 85025; 85379; 87633; 87811; 93005; 93306; 93880; 94640; 95819; 99251; 99285; Q9957; A4216; C8929; G0463

== ENCOUNTER 2022-01-31 10:50 | Day surgery (SDC) | payer MEDICAID, SELFPAY ==
[2022-01-30 14:35] VITALS: BMI 40.1
--- NOTE | 2022-01-31 12:30 | CL.IE_ITS ---
Patient: CHRISTIN RAMÍREZ Study Date: 01/31/2022 Performing: Michael Magdaleno MD : 1955 Age: 66 Gender: female PROCEDURES PERFORMED LP01-([id number])INSERTION OF LOOP RECORDER INDICATIONS Syncope PROCEDURE DETAILS The patient was brought to the Catheterization Lab in the postabsorptive nonsedated state. Informed consent was obtained prior to the procedure. Local anesthetic was given subcutaneously to the left subclavian region with Lidocaine 2%. ICM Loop Recorder was inserted. Steri-strips applied to left subclavicular incision. The patient tolerated the procedure well. Estimated Blood Loss: 0 ml's IMPLANTED / EX-PLANTED DEVICES IMPLANTED DEVICE(S): ICM Loop Recorder - [employer] Ambassador: [employer], Model # Jot Dx Ref [id number] , Serial # [id number] DEVICE PARAMETERS CONCLUSIONS / RECOMMENDATIONS Device Conclusions: Successful implantation of a patient activated loop recorder. Device Recommendations: Follow up with Primary Care Physician PROCEDURE MEDICATIONS Versed 1 mg IV Oxygen: 2 L/min via nasal cannula Antibiotic given in appropriate timeframe. Ancef 2 Gm IV @ 01/31/2022 11:54:17 Signed By Michael Magdaleno MD On 01/31/2022 12:29:40 Michael Magdaleno MD
== END 2022-01-31 13:25 | disposition home or self-care (01) ==
PROVIDERS: PCP Student in an Organized Health Care Education/Training Program; Referring Provider Internal Medicine Cardiovascular Disease; Visit Provider Internal Medicine Cardiovascular Disease
DX: I44.7 Left bundle-branch block, unspecified (principal); E66.01 Morbid (severe) obesity due to excess calories; R55 Syncope and collapse; Z68.38 Body mass index [BMI] 38.0-38.9, adult
CPT/HCPCS: 33285; 99152; A4216

== ENCOUNTER → 2022-03-31 | Day surgery (SDC) | payer MEDICARE, MEDICAID, SELFPAY ==
[2022-03-25 14:48] LABS: Bacteria 0 SEEN /hpf (None Seen); Mucous, Urine 0 SEEN /hpf (<or=2+); Red Blood Cells-Urine 0 SEEN /hpf (0-5)
[2022-03-25 15:27] LABS: Hematocrit 44.9 % (37-47); Mean Corp Hgb Conc 31.2 g/dL (32-36); Mean Corpuscular Hgb 29.7 pg (27.0-32.0); Mean Corpuscular Volume 95.1 fL (81-99); Mean Platelet Vol. 8.8 fl (6.2-12.0); Platelet Count 306 K/mm3 (150-450); RBC Distribution Width SD 45.4 fl (35.1-43.9); Red Blood Count 4.72 M/mm3 (4.2-5.4); White Blood Count 10.6 K/mm3 (4.4-11.0)
[2022-03-25 15:33] LABS: Color, Urine Yellow (Yellow); Glucose, Dipstick Normal (Normal); Ketone-Dipstick Negative (Negative); Leukocyte Esterase-Dipstick Negative /ul (Negative); Nitrite-Dipstick Negative (Negative); Occult Blood-Urine Negative /ul (Negative); Protein-Dipstick Negative (Negative); Specific Gravity, Urine 1.015 (1.002-1.030); Urine Bilirubin Dipstick Negative (Negative); Urine Clarity Sl. Cloudy (Clear); Urine Urobilinogen Normal (Normal)
[2022-03-25 15:40] LABS: Squamous Epithelial Cells - UA 0-5 SEEN /hpf (5-10); White Blood Cells 0-5 SEEN /hpf (0-5)
[2022-03-25 15:55] LABS: Anion Gap 3 (5-15); BUN 14 mg/dL (7-18); BUN/Creat Ratio 15.7 RATIO (10-20); Calcium,Total 8.8 mg/dL (8.5-10.1); Chloride 102 mmol/L (98-107); Creatinine, Serum 0.89 mg/dL (0.55-1.02); EST Glomerular Filtration Rate 67 mL/min (>60); Est Glom Filt Rate - Afr Amer 82 mL/min (>60); Glucose 168 mg/dL (74-106); Potassium 4.4 mmol/L (3.5-5.1); Sodium Level 139 mmol/L (136-145)
[2022-03-25 16:11] LABS: International Normalized Ratio 1.1; Prothrombin Time (Protime)PT. 13.5 SECONDS (11.7-14.9)
[2022-03-28 07:28] VITALS: BMI 40.1
== END | disposition home or self-care (01) ==
LOC: PAT 04-09 13:12
PROVIDERS: Nurse Practitioner Family; PCP Student in an Organized Health Care Education/Training Program; Visit Provider Internal Medicine Cardiovascular Disease
DX: I44.39 Other atrioventricular block (principal); R55 Syncope and collapse
CPT/HCPCS: 36415; 80048; 81001; 85027; 85610